=== PATIENT | male | born 1935 | race Caucasian/White ===

== ENCOUNTER 2016-05-28 20:52 | Inpatient (IN) | payer MEDICARE, MEDICAID ==
[2016-05-28] MEDS ORDERED: Potassium Chloride 10% 20 MEQ/15 ML Soln 30 ML UD Cup PO ONE (20:59)
[2016-05-28] MEDS ORDERED: Sodium Chloride 0.9% 1,000 ML IV ONE (21:12)
--- NOTE | 2016-05-28 21:34 | EDM.PDOC ---
ED HPI GENERAL MEDICAL PROBLEM - General Time Seen by Provider: 05/28/16 21:20 Source of Information: Reports: Patient History Limitations: Reports: No Limitations - Related Data Allergies Allergy/AdvReac Type Severity Reaction Status Date / Time No Known Allergies Allergy Verified 07/05/15 09:27 Home Meds: Home Meds Acetaminophen [Tylenol Arthritis Pain] 1 tab PO Q6H PRN 07/12/14 [History] Aspirin [Adult Low Dose Aspirin EC] 81 mg PO DAILY 07/12/14 [History] Levothyroxine [Synthroid] 100 mcg PO ACBREAKFAST 07/05/15 [History] Cyanocobalamin (Vitamin B-12) [Cyanocobalamin] 5 gm MC 05/28/16 [History] FLUoxetine [PROzac] 10 mg PO DAILY 05/28/16 [History] Past Medical History Cardiovascular History: Reports: High Cholesterol, Hypertension, Stents Respiratory History: Reports: Other (See Below) (respiratory arrest with colonoscopy in 2011) Gastrointestinal History: Reports: Chronic Constipation, Colon Polyp, Hiatal Hernia Neurological History: Reports: Neuropathy, Peripheral Psychiatric History: Reports: Depression Hematologic History: Reports: Anemia Other Oncologic History: throat - Past Surgical History Other HEENT Surgeries/Procedures: throat surg for throat CA Other Cardiovascular Surgeries/Procedures: raynaus's disease GI Surgical History: Reports: Appendectomy, Colonoscopy, Hernia Repair/Other Other GI Surgeries/Procedures: PEG tube before when he has throat surgery Other Musculoskeletal Surgeries/Procedures:: ORIF left hip Social & Family History - Family History Family Medical History: Noncontributory - Tobacco Use Smoking Status *Q: Never Smoker Years of Tobacco use: 40 Used Tobacco, but Quit: Yes Second Hand Smoke Exposure: No - Alcohol Use Days Per Week of Alcohol Use: 0 Number of Drinks Per Day: 0 Total Drinks Per Week: 0 - Recreational Drug Use Recreational Drug Use: No Drug Use in Last 12 Months: No ED ROS GENERAL - Review of Systems Review Of Systems: See Below (History of present illness) ED EXAM, GENERAL - Physical Exam Exam: See Below (History of present illness) Course - Vital Signs Last Recorded V/S: Last Vital Signs Temp 37.1 C 05/29/16 16:00 Pulse 74 05/29/16 16:00 Resp 20 05/29/16 16:00 BP 158/86 H 05/29/16 17:26 Pulse Ox 94 L 05/29/16 16:00 - Orders/Labs/Meds Labs: Laboratory Tests 05/28/16 05/28/16 05/28/16 Range/Units 21:37 21:37 21:37 WBC 9.61 (4.0-11.0) K/uL RBC 4.23 L (4.50-5.90) M/uL Hgb 11.9 L (13.0-17.0) g/dL Hct 36.5 L (38.0-50.0) % MCV 86.3 (80.0-98.0) fL MCH 28.1 (27.0-32.0) pg MCHC 32.6 (31.0-37.0) g/dL RDW Std Deviation 45.9 (28.0-62.0) fl RDW Coeff of Dinesh 15 (11.0-15.0) % Plt Count 196 (150-400) K/uL MPV 9.80 (7.40-12.00) fL Neut % (Auto) 87.2 H (48.0-80.0) % Lymph % (Auto) 7.7 L (16.0-40.0) % Sutton % (Auto) 4.3 (0.0-15.0) % Eos % (Auto) 0.6 (0.0-7.0) % Baso % (Auto) 0.2 (0.0-1.5) % Neut # (Auto) 8.4 H (1.4-5.7) K/uL Lymph # (Auto) 0.7 (0.6-2.4) K/uL Sutton # (Auto) 0.4 (0.0-0.8) K/uL Eos # (Auto) 0.1 (0.0-0.7) K/uL Baso # (Auto) 0.0 (0.0-0.1) K/uL Nucleated RBC % 0.0 /100WBC Nucleated RBCs # 0 K/uL Sodium 140 (136-146) mmol/L Potassium 4.6 (3.5-5.1) mmol/L Chloride 104 (98-110) mmol/L Carbon Dioxide 25 (21-31) mmol/L BUN 40 H (6.0-23.0) mg/dL Creatinine 1.7 H (0.6-1.5) mg/dL Est Cr Clr Drug Dosing 35.23 mL/min Estimated GFR (MDRD) 39.1 ml/min Glucose 123 H (60-110) mg/dL Calcium 8.9 (8.8-10.8) mg/dL Troponin I < 0.10 (0.0-0.29) NG/ML Meds: Medications Discontinued Medications Generic Name Dose Route Start Last Admin Trade Name Freq PRN Reason Stop Dose Admin Acetaminophen 650 mg 05/29/16 00:05 Tylenol PO Q4H PRN Pain (Mild 1-3)/fever Fluoxetine HCl 10 mg 05/29/16 09:15 05/29/16 10:06 Prozac PO 10 mg DAILY EVANGELINA Administration Hydralazine HCl 10 mg 05/29/16 16:41 05/29/16 16:48 Apresoline IVPUSH 05/29/16 16:42 10 mg ONETIME ONE Administration Sodium Chloride 1,000 mls @ 999 mls/hr 05/28/16 21:12 05/28/16 21:19 Normal Saline IV 05/28/16 22:12 999 mls/hr STAT ONE Administration Heparin Sodium/Dextrose 25,000 units in 500 mls @ 27.468 mls/hr 05/28/16 22: 45 05/28/16 22:59 Heparin 25,000 Units In D5w 500 Ml IV 18 units/kg/hr TITRATE EVANGELINA 27.468 mls/hr Protocol Administration 18 UNITS/KG/HR Heparin Sodium/Dextrose 25,000 units in 500 mls @ 27.468 mls/hr 05/28/16 23: 00 Heparin 25,000 Units In D5w 500 Ml IV 05/29/16 23:00 TITRATE [facility] Protocol 18 UNITS/KG/HR Piperacillin Sod/Tazobactam 100 mls @ 100 mls/hr 05/29/16 12:45 05/29/16 13: 29 Sod 4.5 gm/ Sodium Chloride IV 100 mls/hr Q6H EVANGELINA Administration Vancomycin HCl 1,250 mg/ 250 mls @ 166.667 mls/hr 05/29/16 13:15 05/29/16 15: 20 Sodium Chloride IV Not Given Q24H EVANGELINA Heparin Sodium (Porcine) 25, 505 mls @ 27.74 mls/hr 05/29/16 13:30 05/29/16 13:40 000 units/ Dextrose/Water IV 18 units/kg/hr TITRATE EVANGELINA 27.74 mls/hr Protocol Administration 18 UNITS/KG/HR Vancomycin HCl 1,250 mg/ 250 mls @ 166.667 mls/hr 05/29/16 15:15 05/29/16 15: 13 Sodium Chloride IV 166.667 mls/hr Q24H EVANGELINA Administration Levothyroxine Sodium 100 mcg 05/29/16 07:30 05/29/16 06:30 Synthroid PO 100 mcg ACBREAKFAST EVANGELINA Administration Pneumococcal Polyvalent Vaccine 0.5 ml 05/28/16 23:54 Pneumovax 23 IM 05/28/16 23:55 .ONCE ONE Potassium Chloride 60 meq 05/28/16 20:59 05/28/16 21:18 Potassium Chloride PO 05/28/16 21:00 60 meq ONETIME ONE Administration Vancomycin HCl 1 dose 05/29/16 12:45 Pharmacy To Dose - Vancomycin .XX ASDIRECTED EVANGELINA Departure - Departure Time of Disposition: 21:50 Disposition: Admitted As Inpatient 66 Clinical Impression: Accelerated hypertension, Hypoxia, Tachycardia, Hypokalemia ED HISTORY OF PRESENT ILLNESS - General Chief Complaint: Respiratory Problem Stated Complaint: UNK Time Seen by Provider: 05/28/16 21:20 Source of Information: Reports: Patient History Limitations: Reports: No Limitations - History of Present Illness INITIAL COMMENTS - FREE TEXT/NARRATIVE: HISTORY AND PHYSICAL: History of present illness: [80-year-old male history of depression and hypothyroidism sent from [facility] for evaluation of shortness of breath. Patient is now improved on arrival.] Review of systems: As per history of present illness and below otherwise all systems reviewed and negative. Past medical history: As per history of present illness and as reviewed below otherwise noncontributory. Surgical history: As per history of present illness and as reviewed below otherwise noncontributory. Social history: No reported history of drug or alcohol abuse. Family history: As per history of present illness and as reviewed below otherwise noncontributory. Physical exam: HEENT: Atraumatic, normocephalic, pupils reactive, negative for conjunctival pallor or scleral icterus, mucous membranes moist, throat clear, neck supple, nontender, trachea midline. Lungs: Clear to auscultation, breath sounds equal bilaterally, chest nontender. Heart: S1S2, regular, negative for clicks, rubs, or JVD. Abdomen: Soft, nondistended, nontender. Negative for masses or hepatosplenomegaly. Negative for costovertebral tenderness. Pelvis: Stable nontender. Genitourinary: Deferred. Rectal: Deferred. Extremities: Atraumatic, negative for cords or calf pain. Neurovascular unremarkable. Neuro: Awake, alert, oriented. Cranial nerves II through XII unremarkable. Cerebellum unremarkable. Motor and sensory unremarkable throughout. Exam nonfocal. Diagnostics: [] Therapeutics: [] Impression: [] Plan: [Findings of uncontrolled /accelerated hypertension], tachycardia hypokalemia and hypoxia. Patient admitted for further workup and treatment vital signs stable Definitive disposition and diagnosis as appropriate pending reevaluation and review of above. - Related Data Allergies/ADRs: Allergies Allergy/AdvReac Type Severity Reaction Status Date / Time No Known Allergies Allergy Verified 07/05/15 09:27 Home Meds: Home Meds Acetaminophen [Tylenol Arthritis Pain] 1 tab PO Q6H PRN 07/12/14 [History] Aspirin [Adult Low Dose Aspirin EC] 81 mg PO DAILY 07/12/14 [History] Levothyroxine [Synthroid] 100 mcg PO ACBREAKFAST 07/05/15 [History] Cyanocobalamin (Vitamin B-12) [Cyanocobalamin] 5 gm MC 05/28/16 [History] FLUoxetine [PROzac] 10 mg PO DAILY 05/28/16 [History] Departure - Departure Time of Disposition: 21:49 Disposition: Admitted As Inpatient 66 Condition: Good Clinical Impression: Accelerated hypertension, Hypoxia, Tachycardia, Hypokalemia
[2016-05-28] MEDS ORDERED: Heparin Sodium/D5W 25,000 UNITS/500 ML BAG IV SCH ×2 (22:45→23:00)
[2016-05-28] MEDS ORDERED: Pneumococcal Polyvalent-23 Vaccine 0.5 ML SDV IM ONE (23:54)
[2016-05-29] MEDS ORDERED: Acetaminophen 325 MG Tab PO PRN (00:05)
--- NOTE | 2016-05-29 00:12 | PCM.HP ---
H&P History of Present Illness - General Date of Service: 05/28/16 - History of Present Illness Initial Comments - Free Text/Narative: 80 yo male who presented to [place] with shortness of breath. He reports he was having difficulty clearing his throat of phlegm. At [facility] reportedly he was hypoxic requring seven liters O2, tachycardic, hypokalemic with elevated D-dimer. He was transfered to [facility] ED on a heparin drip. In [facility] he was not noted to be tachycardic or hypoxic. His shortness of breath has resolved. CXR was clear. He was noted to have an elevated creatinine of 1.[address] angio was deferred for VQ scan in the morning. - Related Data Allergies/Adverse Reactions: Allergies Allergy/AdvReac Type Severity Reaction Status Date / Time No Known Allergies Allergy Verified 07/05/15 09:27 Home Medications: Home Meds Acetaminophen [Tylenol Arthritis Pain] 1 tab PO Q6H PRN 07/12/14 [History] Aspirin [Adult Low Dose Aspirin EC] 81 mg PO DAILY 07/12/14 [History] Levothyroxine [Synthroid] 100 mcg PO ACBREAKFAST 07/05/15 [History] Cyanocobalamin (Vitamin B-12) [Cyanocobalamin] 5 gm MC 05/28/16 [History] FLUoxetine [PROzac] 10 mg PO DAILY 05/28/16 [History] Past Medical History HEENT History: Reports: Other (see below) Other HEENT History: Has history of throat CA Cardiovascular History: Reports: High cholesterol, Hypertension, Stents Respiratory History: Reports: SOB, Other (see below) Other Respiratory History: Has history of respiratory arrest with colonoscopy in 2011. Gastrointestinal History: Reports: Chronic constipation, Colon polyp, Hiatal hernia Genitourinary History: Reports: None Musculoskeletal History: Reports: None Neurological History: Reports: Neuropathy, peripheral Psychiatric History: Reports: Depression Endocrine/Metabolic History: Reports: None Hematologic History: Reports: Anemia Immunologic History: Reports: None Other Oncologic History: throat Dermatologic History: Reports: None - Infectious Disease History Infectious Disease History: Reports: Chicken pox, Measles - Past Surgical History Other HEENT Surgeries/Procedures: throat surg for throat CA Other Cardiovascular Surgeries/Procedures: raynaus's disease GI Surgical History: Reports: Appendectomy, Colonoscopy, Hernia repair/other Other GI Surgeries/Procedures: PEG tube before when he has throat surgery Male Surgical History: Reports: None Other Musculoskeletal Surgeries/Procedures:: ORIF left hip Social & Family History - Family History Family Medical History: Noncontributory - Tobacco Use Smoking Status *Q: Current Every Day Smoker Years of Tobacco use: 1 Packs/Tins Daily: 5 Used Tobacco, but Quit: Yes Second Hand Smoke Exposure: No - Caffeine Use Caffeine Use: Reports: Coffee, Soda - Alcohol Use Days Per Week of Alcohol Use: 0 Number of Drinks Per Day: 0 Total Drinks Per Week: 0 - Recreational Drug Use Recreational Drug Use: No Drug Use in Last 12 Months: No H&P Review of Systems - Review of Systems: Review Of Systems: See Below General: Reports: no symptoms HEENT: Reports: no symptoms Pulmonary: Reports: No Symptoms Cardiovascular: Reports: no symptoms Gastrointestinal: Reports: No symptoms Genitourinary: Reports: no symptoms Musculoskeletal: Reports: no symptoms Skin: Reports: no symptoms Psychiatric: Reports: no symptoms Neurological: Reports: No Symptoms Hematologic/Lymphatic: Reports: no symptoms Immunologic: Reports: no symptoms Exam - Exam Exam: See Below - Vital Signs Vital Signs: Last Vital Signs Temp 36.5 C 05/28/16 23:25 Pulse 82 05/28/16 23:25 Resp 17 05/28/16 23:25 BP 100/71 05/28/16 23:25 Pulse Ox 98 05/28/16 23:25 Weight: 73 kg - Exam General: alert, cooperative Neck: supple. No: lymphadenopathy Lungs: Clear to auscultation, Normal respiratory effort Cardiovascular: regular rate, regular rhythm Abdomen: normal bowel sounds, soft Extremities: normal inspection Skin: warm, dry, intact - Patient Data Result Diagrams: 05/29/16 04:32 05/29/16 04:32 *Q Meaningful Use (ADM) - VTE *Q VTE Criteria *Q: - Stroke *Q Stroke Criteria *Q: - AMI *Q AMI Criteria *Q: Problem List Initiated/Reviewed/Updated: Yes Orders Last 24hrs: Active Orders 24 hr Category Date Time Status Intake and Output [RC] QSHIFT Care 05/29/16 00:05 Ordered Oxygen Therapy [RC] PRN Care 05/29/16 00:05 Ordered Up ad Claudia [RC] ASDIRECTED Care 05/29/16 00:05 Ordered VTE/DVT Education [RC] PER UNIT ROUTINE Care 05/29/16 00:05 Ordered Vital Signs [RC] Q4H Care 05/29/16 00:05 Ordered Regular Diet [DIET] Diet 05/29/16 Breakfast Ordered Lung Vent Perfusion [NM] Routine Exams 05/28/16 23:54 Ordered BASIC METABOLIC PANEL,BMP [CHEM] AM Lab 05/29/16 05:11 Ordered BASIC METABOLIC PANEL,BMP [CHEM] AM Lab 05/30/16 05:11 Ordered BASIC METABOLIC PANEL,BMP [CHEM] AM Lab 05/31/16 05:11 Ordered CBC WITH AUTO DIFF [HEME] AM Lab 05/29/16 05:11 Ordered CBC WITH AUTO DIFF [HEME] AM Lab 05/30/16 05:11 Ordered CBC WITH AUTO DIFF [HEME] AM Lab 05/31/16 05:11 Ordered Acetaminophen [Tylenol] Med 05/29/16 00:05 Ordered 650 mg PO Q4H PRN Resuscitation Status Routine Resus Stat 05/29/16 00:05 Ordered Medication Orders Heparin Sodium/Dextrose (Heparin 25,000 Units In D5w 500 Ml) 25,000 units in 500 mls @ 27.468 mls/hr IV TITRATE EVANGELINA; 18 UNITS/KG/HR PRN Reason: Protocol Last Admin: 05/28/16 22:59 Dose: 18 units/kg/hr, 27.468 mls/hr Assessment/Plan Comment:: 80 yo male with reported history of acute respiratory failure which has resolved. According to his symptoms he likely had difficulty clearing his secretions. We will rule out PE with VQ scan in morning. In the meantime will continue heparin drip.
[2016-05-29] MEDS ORDERED: Levothyroxine 100 MCG Tab PO SCH (07:30)
--- NOTE | 2016-05-29 10:34 | CR ---
EXAM DATE: 05/28/16 PATIENT'S AGE: 80 Patient: SHAZIA MERRITT Facility: [place], [place] Site . Site : [id number] Study: XRay Chest [id number]/5/2017 10:22:15 PM Ordering Physician: Harlan Cadet Final Report: Indication: Shortness of breath Technique: Chest 1 view. Comparison: July 05, 2015 Findings: Cardiovascular and mediastinum: Heart size and vasculature are stable in caliber and appearance. Mediastinum is within normal limits. The aorta is tortuous. Lungs and pleural space: Stable bilateral apical scarring. Minimal patchy opacity at the right lung base. No sign of pleural effusion. No pneumothorax. Bones and soft tissues: No significant findings. Impression: 1. Minimal patchy opacity at the right lung base may represent atelectasis or infection. 2. Stable bilateral apical scarring. Dictated by Jennifer Shah MD @ May 28 2016 10:55PM (Electronic Signature) Report Signed by Proxy and Original Signed Document filed in the Medical Record. MTDD
--- NOTE | 2016-05-29 11:15 | PCM.PN ---
- General Info Date of Service: 05/29/16 Admission Dx/Problem (Free Text): dyspnea Subjective Update: Doing much better this morning. States his breathing is good. No shortness of breath at all. No chest pain or leg pain. Eating and eliminating without difficulty. Functional Status: Reports: pain controlled, ambulating, urinating - Review of Systems General: Denies: Fever, Weakness, Fatigue HEENT: Reports: sinus congestion. Denies: headaches, sore throat Pulmonary: Denies: shortness of breath, pleuritic chest pain, cough, hemoptysis , wheezing Cardiovascular: Denies: Chest Pain, Palpitations, Edema Gastrointestinal: Denies: Abdominal pain, Nausea, Vomiting Genitourinary: Denies: dysuria, hematuria Musculoskeletal: Denies: neck pain, leg pain Skin: Denies: cyanosis Neurological: Denies: Confusion, Dizziness Psychiatric: Denies: confusion, depression - Patient Data Vitals - most recent: Last Vital Signs Temp 36.9 C 05/29/16 08:00 Pulse 72 05/29/16 08:00 Resp 20 05/29/16 08:00 BP 139/75 05/29/16 08:00 Pulse Ox 99 05/29/16 08:00 Weight - most recent: 73 kg I&O - last 24 hours: Intake & Output 05/28/16 05/29/16 05/29/16 22:59 06:59 14:59 Intake Total 374 Output Total 250 Balance 124 Lab Results last 24 hrs: Laboratory Results - last 24 hr 05/29/16 05/29/16 05/29/16 Range/Units 04:32 04:32 04:32 WBC 5.62 (4.0-11.0) K/uL RBC 3.86 L (4.50-5.90) M/uL Hgb 11.0 L (13.0-17.0) g/dL Hct 33.4 L (38.0-50.0) % MCV 86.5 (80.0-98.0) fL MCH 28.5 (27.0-32.0) pg MCHC 32.9 (31.0-37.0) g/dL RDW Std Deviation 46.6 (28.0-62.0) fl RDW Coeff of Dinesh 15 (11.0-15.0) % Plt Count 183 (150-400) K/uL MPV 9.90 (7.40-12.00) fL Neut % (Auto) 74.5 (48.0-80.0) % Lymph % (Auto) 14.9 L (16.0-40.0) % Josephine % (Auto) 7.3 (0.0-15.0) % Eos % (Auto) 2.8 (0.0-7.0) % Baso % (Auto) 0.5 (0.0-1.5) % Neut # (Auto) 4.2 (1.4-5.7) K/uL Lymph # (Auto) 0.8 (0.6-2.4) K/uL Josephine # (Auto) 0.4 (0.0-0.8) K/uL Eos # (Auto) 0.2 (0.0-0.7) K/uL Baso # (Auto) 0.0 (0.0-0.1) K/uL Nucleated RBC % 0.0 /100WBC Nucleated RBCs # 0 K/uL APTT 65.5 H (18.6-31.3) SEC Sodium 142 (136-146) mmol/L Potassium 4.1 (3.5-5.1) mmol/L Chloride 109 (98-110) mmol/L Carbon Dioxide 24 (21-31) mmol/L BUN 32 H (6.0-23.0) mg/dL Creatinine 1.3 (0.6-1.5) mg/dL Est Cr Clr Drug Dosing 45.92 mL/min Estimated GFR (MDRD) 53.3 ml/min Glucose 96 (60-110) mg/dL Calcium 7.7 L (8.8-10.8) mg/dL Med Orders - Current: Current Medications Acetaminophen (Tylenol) 650 mg PO Q4H PRN PRN Reason: Pain (Mild 1-3)/fever Fluoxetine HCl (Prozac) 10 mg PO DAILY EVANGELINA Last Admin: 05/29/16 10:06 Dose: 10 mg Heparin Sodium/Dextrose (Heparin 25,000 Units In D5w 500 Ml) 25,000 units in 500 mls @ 27.468 mls/hr IV TITRATE EVANGELINA; 18 UNITS/KG/HR PRN Reason: Protocol Last Admin: 05/28/16 22:59 Dose: 18 units/kg/hr, 27.468 mls/hr Levothyroxine Sodium (Synthroid) 100 mcg PO ACBREAKFAST EVANGELINA Last Admin: 05/29/16 06:30 Dose: 100 mcg Discontinued Medications Sodium Chloride (Normal Saline) 1,000 mls @ 999 mls/hr IV STAT ONE Stop: 05/28/16 22:12 Last Admin: 05/28/16 21:19 Dose: 999 mls/hr Heparin Sodium/Dextrose (Heparin 25,000 Units In D5w 500 Ml) 25,000 units in 500 mls @ 27.468 mls/hr IV TITRATE EVANGELINA; 18 UNITS/KG/HR PRN Reason: Protocol Stop: 05/29/16 23:00 Pneumococcal Polyvalent Vaccine (Pneumovax 23) 0.5 ml IM .ONCE ONE Stop: 05/28/16 23:55 Potassium Chloride (Potassium Chloride) 60 meq PO ONETIME ONE Stop: 05/28/16 21:00 Last Admin: 05/28/16 21:18 Dose: 60 meq - Exam Quality Assessment: DVT prophylaxis General: alert, oriented, cooperative, no acute distress HEENT: Pupils equal, Pupils reactive, EOMI, Mucous membr. moist/pink Neck: supple Lungs: Clear to auscultation, Normal respiratory effort Cardiovascular: Regular Rate, Regular Rhythm Abdomen: bowel sounds present, soft, no tenderness, no distension Back Exam: normal inspection, full range of motion Extremities: no edema, normal pulses, no tenderness/swelling, no calf tenderness Peripheral Pulses: 2+: radial (L), radial (R), posterior tibial (L), posterior tibial (R), dorsalis pedis (L), dorsalis pedis (R) Skin: warm, dry, intact Neurological: no new focal deficit Psy/Mental Status: alert, normal affect, normal mood - Problem List & Annotations (1) Acute dyspnea SNOMED Code(s): 870621352 Code(s): R06.00 - DYSPNEA, UNSPECIFIED Status: Resolved Priority: High Current Visit: Yes (2) Hypokalemia SNOMED Code(s): 89517478 Code(s): E87.6 - HYPOKALEMIA Status: Resolved Priority: High Current Visit: Yes - Problem List Review Problem List Initiated/Reviewed/Updated: Yes - My Orders Last 24 Hours: My Active Orders 05/29/16 09:15 FLUoxetine [PROzac] 10 mg PO DAILY - Plan Plan:: 80 yo male admitted 05/29/16 fro dyspnea and hypokalemia. Dyspnea: Resolved this am. No shortness of breath. 99% O2 on room air. There was an elevated d-dimer. Will get V/Q scan secondary to renal insufficiency this morning. Also will get Ultrasound of legs bilaterally. Having no leg pain. Hypokalemia: Resolved with oral potassium will monitory. VTE: On Heparin drip started at [facility]. Dispo: Later today or tomorrow pending results of studies.
[2016-05-29] MEDS ORDERED: Piperacillin/Tazobactam 4.5 GM in Sodium Chloride 0.9% 100 ML IV SCH (12:45)
[2016-05-29] MEDS ORDERED: Heparin Sodium 25,000 UNITS in Dextrose 5% in Water 500 ML IV SCH ×2 (13:30)
--- NOTE | 2016-05-29 13:45 | NM ---
EXAMINATION: NM ventilation/perfusion study HISTORY: Evaluate for PE COMPARISON: Chest radiograph dated 05/28/2016 TECHNIQUE: Multi planar acquisition obtained of the chest following the administration of 4.2 mCi of Tech 99M labeled MAA and 43.6 mCi of Tech 99M labeled DTPA. FINDINGS: There is no evidence of a ventilation perfusion mismatch. No segmental perfusion defect is noted. Overall the ventilation and perfusion patterns appear normal. IMPRESSION: Low probability for a pulmonary embolism.
--- NOTE | 2016-05-29 16:04 | US ---
ULTRASOUND EXAMINATION OF the left and right lower extremities WITH DOPPLER HISTORY: Shortness of breath FINDINGS: Examination of the left and right leg were performed from the groin to the calf region. All visuali zed segments of the right including common femoral, proximal greater saphenous, superficial femoral, popliteal and calf veins appear patent with good compressibility and augmentation. The most part th e deep veins of the left leg are compressible. There is a component within the mid femoral vein whic h is incompletely compressible, however nondilated. IMPRESSION: 1. No evidence of an acute deep venous thrombus. 2. 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
[2016-05-29] MEDS ORDERED: hydrALAZINE 20 MG/ML SDV IVPUSH ONE (16:41)
--- NOTE | 2016-05-29 17:16 | PCM.DCSUM1 ---
<TangJames fall - Last Filed: 05/29/16 17:15> Discharge Summary - Hospital Course HPI Initial Comments: 80 yo male admitted 05/28/16 for dyspnea with pmh Laryngeal cancer, Raynaud's, chornic neuropathy, hypothyroidism and depression. Brief History: Patient intially presented to [place] with shortness of breath. He reported he was having difficulty clearing his throat of phlegm. It was reported from [facility] that he was hypoxic requring seven liters O2 , tachycardic, hypokalemic with elevated D-dimer. He was transfered to [place] ED on a heparin drip. In [place], he was not noted to be tachycardic or hypoxic. His shortness of breath had resolved. CXR was clear. He was noted to have an elevated creatinine of 1.[address] angio was deferred for VQ scan in the morning. - Discharge Data Discharge Date: 05/29/16 Discharge Disposition: Home, Self-Care 01 Condition: Good - Discharge Diagnosis/Problem(s) (1) Acute dyspnea SNOMED Code(s): 898249252 ICD Code: R06.00 - DYSPNEA, UNSPECIFIED Status: Resolved Priority: High (2) Hypokalemia SNOMED Code(s): 20825055 ICD Code: E87.6 - HYPOKALEMIA Status: Resolved Priority: High - Patient Summary/Data Hospital Course: see summary below. - Patient Instructions Diet: Usual Diet as Tolerated Activity: As Tolerated Driving: Do Not Drive Showering/Bathing: May Shower Notify Provider of: Fever, Increased Pain, Nausea and/or Vomiting Other/Special Instructions: Follow up with Dr. Nicole. Take medications as prescribed. Return to ED if any return of symptoms. - Discharge Plan Home Medications: Home Meds Acetaminophen [Tylenol Arthritis Pain] 1 tab PO Q6H PRN 07/12/14 [History] Aspirin [Adult Low Dose Aspirin EC] 81 mg PO DAILY 07/12/14 [History] Levothyroxine [Synthroid] 100 mcg PO ACBREAKFAST 07/05/15 [History] Cyanocobalamin (Vitamin B-12) [Cyanocobalamin] 5 gm MC 05/28/16 [History] FLUoxetine [PROzac] 10 mg PO DAILY 05/28/16 [History] Patient Handouts: Shortness of Breath, [id number] Referrals: Keira Hackett DO [Primary Care Provider] - - Discharge Summary/Plan Comment DC Time >30 min.: Yes Discharge Summary/Plan Comment: 80 yo male admitted 05/28/16 for dyspnea with pmh Laryngeal cancer, Raynaud's, chornic neuropathy, hypothyroidism and depression. Patient intially presented to [place] with shortness of breath. He reported he was having difficulty clearing his throat of phlegm. It was reported from [facility] that he was hypoxic requring seven liters O2, tachycardic, hypokalemic with elevated D-dimer. He was transfered to [place] ED on a heparin drip. In [place], he was not noted to be tachycardic or hypoxic. His shortness of breath had resolved. CXR was clear. He was noted to have an elevated creatinine of 1.[address] angio was deferred for VQ scan in the morning. Patient was admitted for dyspnea and rule out pulmonary embolism. Patient did well overnight and had no return of shortness of breath. His creatinine improved from 1.7 to 1.3 with IVF resuscitation. V/Q scan showed low probablility for a pulmonary embolism and venous doppler of bilateral lower extremeties showed no evidence of an acute deep venous thrombus. 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 I did talk with the radiolgist, Dr. Brar, who said that there was blood flow at this area and the area of interest was most likely firbrous tissue thickening from an old possibly treated DVT. He confirmed that there was no acute DVT needing treatment. Patient was discharged in good condition with a follow-up appointment with his PCP as well as an appointment with our local ENT at his request secondary to his history of laryngeal cancer. - Patient Data Vitals - Most Recent: Last Vital Signs Temp 37.1 C 05/29/16 16:00 Pulse 74 05/29/16 16:00 Resp 20 05/29/16 16:00 BP 206/109 H 05/29/16 16:45 Pulse Ox 94 L 05/29/16 16:00 Weight - Most Recent: 73 kg I&O - Last 24 hours: Intake & Output 05/29/16 05/29/16 05/29/16 06:59 14:59 22:59 Intake Total 374 500 750 Output Total 250 Balance 124 500 750 Lab Results - Last 24 hrs: Laboratory Results - last 24 hr 05/29/16 05/29/16 05/29/16 Range/Units 04:32 04:32 04:32 WBC 5.62 (4.0-11.0) K/uL RBC 3.86 L (4.50-5.90) M/uL Hgb 11.0 L (13.0-17.0) g/dL Hct 33.4 L (38.0-50.0) % MCV 86.5 (80.0-98.0) fL MCH 28.5 (27.0-32.0) pg MCHC 32.9 (31.0-37.0) g/dL RDW Std Deviation 46.6 (28.0-62.0) fl RDW Coeff of Dinesh 15 (11.0-15.0) % Plt Count 183 (150-400) K/uL MPV 9.90 (7.40-12.00) fL Neut % (Auto) 74.5 (48.0-80.0) % Lymph % (Auto) 14.9 L (16.0-40.0) % Norman % (Auto) 7.3 (0.0-15.0) % Eos % (Auto) 2.8 (0.0-7.0) % Baso % (Auto) 0.5 (0.0-1.5) % Neut # (Auto) 4.2 (1.4-5.7) K/uL Lymph # (Auto) 0.8 (0.6-2.4) K/uL Norman # (Auto) 0.4 (0.0-0.8) K/uL Eos # (Auto) 0.2 (0.0-0.7) K/uL Baso # (Auto) 0.0 (0.0-0.1) K/uL Nucleated RBC % 0.0 /100WBC Nucleated RBCs # 0 K/uL APTT 65.5 H (18.6-31.3) SEC Sodium 142 (136-146) mmol/L Potassium 4.1 (3.5-5.1) mmol/L Chloride 109 (98-110) mmol/L Carbon Dioxide 24 (21-31) mmol/L BUN 32 H (6.0-23.0) mg/dL Creatinine 1.3 (0.6-1.5) mg/dL Est Cr Clr Drug Dosing 45.92 mL/min Estimated GFR (MDRD) 53.3 ml/min Glucose 96 (60-110) mg/dL Calcium 7.7 L (8.8-10.8) mg/dL 05/29/16 Range/Units 13:32 WBC (4.0-11.0) K/uL RBC (4.50-5.90) M/uL Hgb (13.0-17.0) g/dL Hct (38.0-50.0) % MCV (80.0-98.0) fL MCH (27.0-32.0) pg MCHC (31.0-37.0) g/dL RDW Std Deviation (28.0-62.0) fl RDW Coeff of Dinesh (11.0-15.0) % Plt Count (150-400) K/uL MPV (7.40-12.00) fL Neut % (Auto) (48.0-80.0) % Lymph % (Auto) (16.0-40.0) % Norman % (Auto) (0.0-15.0) % Eos % (Auto) (0.0-7.0) % Baso % (Auto) (0.0-1.5) % Neut # (Auto) (1.4-5.7) K/uL Lymph # (Auto) (0.6-2.4) K/uL Norman # (Auto) (0.0-0.8) K/uL Eos # (Auto) (0.0-0.7) K/uL Baso # (Auto) (0.0-0.1) K/uL Nucleated RBC % /100WBC Nucleated RBCs # K/uL APTT 65.5 H (18.6-31.3) SEC Sodium (136-146) mmol/L Potassium (3.5-5.1) mmol/L Chloride (98-110) mmol/L Carbon Dioxide (21-31) mmol/L BUN (6.0-23.0) mg/dL Creatinine (0.6-1.5) mg/dL Est Cr Clr Drug Dosing mL/min Estimated GFR (MDRD) ml/min Glucose (60-110) mg/dL Calcium (8.8-10.8) mg/dL Med Orders - Current: Current Medications Acetaminophen (Tylenol) 650 mg PO Q4H PRN PRN Reason: Pain (Mild 1-3)/fever Fluoxetine HCl (Prozac) 10 mg PO DAILY EVANGELINA Last Admin: 05/29/16 10:06 Dose: 10 mg Heparin Sodium (Porcine) 25, (000 units/ Dextrose/Water) 505 mls @ 27.74 mls/ hr IV TITRATE EVANGELINA; 18 UNITS/KG/HR PRN Reason: Protocol Last Admin: 05/29/16 13:40 Dose: 18 units/kg/hr, 27.74 mls/hr Levothyroxine Sodium (Synthroid) 100 mcg PO ACBREAKFAST EVANGELINA Last Admin: 05/29/16 06:30 Dose: 100 mcg Discontinued Medications Hydralazine HCl (Apresoline) 10 mg IVPUSH ONETIME ONE Stop: 05/29/16 16:42 Last Admin: 05/29/16 16:48 Dose: 10 mg Sodium Chloride (Normal Saline) 1,000 mls @ 999 mls/hr IV STAT ONE Stop: 05/28/16 22:12 Last Admin: 05/28/16 21:19 Dose: 999 mls/hr Heparin Sodium/Dextrose (Heparin 25,000 Units In D5w 500 Ml) 25,000 units in 500 mls @ 27.468 mls/hr IV TITRATE EVANGELINA; 18 UNITS/KG/HR PRN Reason: Protocol Last Admin: 05/28/16 22:59 Dose: 18 units/kg/hr, 27.468 mls/hr Heparin Sodium/Dextrose (Heparin 25,000 Units In D5w 500 Ml) 25,000 units in 500 mls @ 27.468 mls/hr IV TITRATE EVANGELINA; 18 UNITS/KG/HR PRN Reason: Protocol Stop: 05/29/16 23:00 Piperacillin Sod/Tazobactam (Sod 4.5 gm/ Sodium Chloride) 100 mls @ 100 mls/hr IV Q6H [facility] Last Admin: 05/29/16 13:29 Dose: 100 mls/hr Vancomycin HCl 1,250 mg/ (Sodium Chloride) 250 mls @ 166.667 mls/hr IV Q24H EVANGELINA Last Admin: 05/29/16 15:20 Dose: Not Given Vancomycin HCl 1,250 mg/ (Sodium Chloride) 250 mls @ 166.667 mls/hr IV Q24H EVANGELINA Last Admin: 05/29/16 15:13 Dose: 166.667 mls/hr Pneumococcal Polyvalent Vaccine (Pneumovax 23) 0.5 ml IM .ONCE ONE Stop: 05/28/16 23:55 Potassium Chloride (Potassium Chloride) 60 meq PO ONETIME ONE Stop: 05/28/16 21:00 Last Admin: 05/28/16 21:18 Dose: 60 meq Vancomycin HCl (Pharmacy To Dose - Vancomycin) 1 dose .XX ASDIRECTED EVANGELINA *Q Meaningful Use (DIS) - VTE *Q VTE Criteria *Q: - Stroke *Q Stroke Criteria *Q: - AMI *Q AMI Criteria *Q: <Douglas Stevens - Last Filed: 05/29/16 19:59> - Patient Data Vitals - Most Recent: Last Vital Signs Temp 37.1 C 05/29/16 16:00 Pulse 74 05/29/16 16:00 Resp 20 05/29/16 16:00 BP 158/86 H 05/29/16 17:26 Pulse Ox 94 L 05/29/16 16:00 I&O - Last 24 hours: Intake & Output 05/29/16 05/29/16 05/29/16 06:59 14:59 22:59 Intake Total 374 500 750 Output Total 250 Balance 124 500 750 Lab Results - Last 24 hrs: Laboratory Results - last 24 hr 05/29/16 05/29/16 05/29/16 Range/Units 04:32 04:32 04:32 WBC 5.62 (4.0-11.0) K/uL RBC 3.86 L (4.50-5.90) M/uL Hgb 11.0 L (13.0-17.0) g/dL Hct 33.4 L (38.0-50.0) % MCV 86.5 (80.0-98.0) fL MCH 28.5 (27.0-32.0) pg MCHC 32.9 (31.0-37.0) g/dL RDW Std Deviation 46.6 (28.0-62.0) fl RDW Coeff of Dinesh 15 (11.0-15.0) % Plt Count 183 (150-400) K/uL MPV 9.90 (7.40-12.00) fL Neut % (Auto) 74.5 (48.0-80.0) % Lymph % (Auto) 14.9 L (16.0-40.0) % Norman % (Auto) 7.3 (0.0-15.0) % Eos % (Auto) 2.8 (0.0-7.0) % Baso % (Auto) 0.5 (0.0-1.5) % Neut # (Auto) 4.2 (1.4-5.7) K/uL Lymph # (Auto) 0.8 (0.6-2.4) K/uL Norman # (Auto) 0.4 (0.0-0.8) K/uL Eos # (Auto) 0.2 (0.0-0.7) K/uL Baso # (Auto) 0.0 (0.0-0.1) K/uL Nucleated RBC % 0.0 /100WBC Nucleated RBCs # 0 K/uL APTT 65.5 H (18.6-31.3) SEC Sodium 142 (136-146) mmol/L Potassium 4.1 (3.5-5.1) mmol/L Chloride 109 (98-110) mmol/L Carbon Dioxide 24 (21-31) mmol/L BUN 32 H (6.0-23.0) mg/dL Creatinine 1.3 (0.6-1.5) mg/dL Est Cr Clr Drug Dosing 45.92 mL/min Estimated GFR (MDRD) 53.3 ml/min Glucose 96 (60-110) mg/dL Calcium 7.7 L (8.8-10.8) mg/dL 05/29/16 Range/Units 13:32 WBC (4.0-11.0) K/uL RBC (4.50-5.90) M/uL Hgb (13.0-17.0) g/dL Hct (38.0-50.0) % MCV (80.0-98.0) fL MCH (27.0-32.0) pg MCHC (31.0-37.0) g/dL RDW Std Deviation (28.0-62.0) fl RDW Coeff of Dinesh (11.0-15.0) % Plt Count (150-400) K/uL MPV (7.40-12.00) fL Neut % (Auto) (48.0-80.0) % Lymph % (Auto) (16.0-40.0) % Norman % (Auto) (0.0-15.0) % Eos % (Auto) (0.0-7.0) % Baso % (Auto) (0.0-1.5) % Neut # (Auto) (1.4-5.7) K/uL Lymph # (Auto) (0.6-2.4) K/uL Norman # (Auto) (0.0-0.8) K/uL Eos # (Auto) (0.0-0.7) K/uL Baso # (Auto) (0.0-0.1) K/uL Nucleated RBC % /100WBC Nucleated RBCs # K/uL APTT 65.5 H (18.6-31.3) SEC Sodium (136-146) mmol/L Potassium (3.5-5.1) mmol/L Chloride (98-110) mmol/L Carbon Dioxide (21-31) mmol/L BUN (6.0-23.0) mg/dL Creatinine (0.6-1.5) mg/dL Est Cr Clr Drug Dosing mL/min Estimated GFR (MDRD) ml/min Glucose (60-110) mg/dL Calcium (8.8-10.8) mg/dL Med Orders - Current: Current Medications Discontinued Medications Acetaminophen (Tylenol) 650 mg PO Q4H PRN PRN Reason: Pain (Mild 1-3)/fever Fluoxetine HCl (Prozac) 10 mg PO DAILY [facility] Last Admin: 05/29/16 10:06 Dose: 10 mg Hydralazine HCl (Apresoline) 10 mg IVPUSH ONETIME ONE Stop: 05/29/16 16:42 Last Admin: 05/29/16 16:48 Dose: 10 mg Sodium Chloride (Normal Saline) 1,000 mls @ 999 mls/hr IV STAT ONE Stop: 05/28/16 22:12 Last Admin: 05/28/16 21:19 Dose: 999 mls/hr Heparin Sodium/Dextrose (Heparin 25,000 Units In D5w 500 Ml) 25,000 units in 500 mls @ 27.468 mls/hr IV TITRATE EVANGELINA; 18 UNITS/KG/HR PRN Reason: Protocol Last Admin: 05/28/16 22:59 Dose: 18 units/kg/hr, 27.468 mls/hr Heparin Sodium/Dextrose (Heparin 25,000 Units In D5w 500 Ml) 25,000 units in 500 mls @ 27.468 mls/hr IV TITRATE EVANGELINA; 18 UNITS/KG/HR PRN Reason: Protocol Stop: 05/29/16 23:00 Piperacillin Sod/Tazobactam (Sod 4.5 gm/ Sodium Chloride) 100 mls @ 100 mls/hr IV Q6H [facility] Last Admin: 05/29/16 13:29 Dose: 100 mls/hr Vancomycin HCl 1,250 mg/ (Sodium Chloride) 250 mls @ 166.667 mls/hr IV Q24H [facility] Last Admin: 05/29/16 15:20 Dose: Not Given Heparin Sodium (Porcine) 25, (000 units/ Dextrose/Water) 505 mls @ 27.74 mls/ hr IV TITRATE EVANGELINA; 18 UNITS/KG/HR PRN Reason: Protocol Last Admin: 05/29/16 13:40 Dose: 18 units/kg/hr, 27.74 mls/hr Vancomycin HCl 1,250 mg/ (Sodium Chloride) 250 mls @ 166.667 mls/hr IV Q24H [facility] Last Admin: 05/29/16 15:13 Dose: 166.667 mls/hr Levothyroxine Sodium (Synthroid) 100 mcg PO ACBREAKFAST [facility] Last Admin: 05/29/16 06:30 Dose: 100 mcg Pneumococcal Polyvalent Vaccine (Pneumovax 23) 0.5 ml IM .ONCE ONE Stop: 05/28/16 23:55 Potassium Chloride (Potassium Chloride) 60 meq PO ONETIME ONE Stop: 05/28/16 21:00 Last Admin: 05/28/16 21:18 Dose: 60 meq Vancomycin HCl (Pharmacy To Dose - Vancomycin) 1 dose .XX ASDIRECTED EVANGELINA *Q Meaningful Use (DIS) - VTE *Q VTE Criteria *Q: - Stroke *Q Stroke Criteria *Q: - AMI *Q AMI Criteria *Q: - Free Text/Narrative Note: I have examined the patient. I have discussed findings and treatment plan with resident. I agree with the assessment and plan outlined in the following note.
[2016-05-29 17:26] VITALS: BP 158/86
== END 2016-05-29 18:30 | disposition home or self-care (01) | DRG 204 ==
LOC: MW.ED 20:52 → UNDOADMIN 22:51 → MW.MS 22:51 → UNDODISIN 05-29 18:30
PROVIDERS: ADMIT Internal Medicine; ATTEND Internal Medicine
DX: R06.00 Dyspnea, unspecified (principal); R09.02 Hypoxemia; R00.0 Tachycardia, unspecified; E87.6 Hypokalemia; I73.00 Raynaud's syndrome without gangrene; G62.9 Polyneuropathy, unspecified; E03.9 Hypothyroidism, unspecified; F32.9 Major depressive disorder, single episode, unspecified; Z85.21 Personal history of malignant neoplasm of larynx; Z79.899 Other long term (current) drug therapy; E78.00 Pure hypercholesterolemia, unspecified; I10 Essential (primary) hypertension
CPT/HCPCS: 36415; 71010; 80048; 84484; 85025; 96360; 99285; A9270; J7040; 78582; 78582-26; 85730; 93005; 93970; 93970-26; 99284; J0360; J1644; J2543; J3370; J7030; J7050; J7060